=== PATIENT | female | born 1975 | race Caucasian/White ===

== ENCOUNTER 2025-09-23 17:24 | Inpatient (IN) | payer OTHER, SELFPAY ==
[2025-09-23 17:38] VITALS: PULSE 86; BMI 38.4
--- NOTE | 2025-09-23 18:02 | MHC.EDTECH ---
Patient refusing lab work at this time. RN aware.
[2025-09-23 18:04] VITALS: BP 147/87; PULSE 105; RESP 18; TEMP 36.1; O2SAT 100
[2025-09-23 18:12] LABS: Appearance Urine Cloudy; Glucose Urine UA Negative (Negative); PH 5.0 (5.0-9.0); Specific Gravity - Urine 1.015 (1.005-1.025); UMIC TRIGGER UA YES
[2025-09-23 18:22] LABS: Cannabinoid Screen Urine Not Detected (Not Detect)
--- NOTE | 2025-09-23 18:43 | ED.PSYCH ---
HPI - Psych General Chief Complaint: Psychiatric Symptoms Stated Complaint: delusions Time Seen by Provider: 09/23/25 17:52 History of Present Illness ED Provider: Serene Hollingsworth NP HPI Narrative: 50-year-old female with psychiatric medical history presents to the ED via EMS for evaluation of manic behavior and delusional statements. The patient reportedly believes that people are trying to high risk for heart for her ex- and other organs, she has been calling [email or web address], as well as [employer], and the [employer]. She denies any active suicidal ideation or homicidal ideation. Denies any medical complaints. No chest pain or pressure, shortness of breath, abdominal pain, fever or chills. Related Data Home Medications ?Medication ?Instructions ?Recorded ?Confirmed No Known Home Meds 09/23/25 09/23/25 Allergies Allergy/AdvReac Type Severity Reaction Status Date / Time No Known Allergies Allergy Verified 09/23/25 17:44 Review of Systems Review of Systems: ROS is otherwise negative unless mentioned in HPI. [facility] Social History Social History Advance Directives: No Advance Directives Information Provided: No Do you have a plan to hurt others: No Plan Physical Exam Exam: Exam: Nursing notes and vital signs reviewed. Constitutional: Well-appearing, NAD. Alert. Oriented X3. Eyes: EOMI. ENT: Pharynx normal. Neck: Normal inspection. Neck supple. CVS: Pulses normal. Respiratory: No respiratory distress. Abdomen: Nondistended. Skin: Skin warm and dry. Extremities: No lower extremity edema. Neuro: Oriented X 3. No motor deficit. Vital Signs: Vital Signs: Last Vital Signs Temp 98.7 F 09/25/25 06:43 Pulse 92 09/25/25 06:43 Resp 16 09/25/25 06:43 BP 140/73 H 09/25/25 06:43 Pulse Ox 98 09/25/25 06:43 O2 Del Method Room Air 09/25/25 06:43 BMI result Body Mass Index 38.4 Course Reevaluation(s) Reevaluation #1: Time: 05:14 Date: 09/24/25 Provider: William Gonzalez MD Patient in physician observation for psychiatric evaluation.? No acute events reported overnight. No current complaints. VS revealed an elevated blood pressure 178/84 stable, patient asymptomatic, will continue to monitor BP.? Patient is in bed search status. Will continue to monitor. 5:19 AM 09/24/2025 (Arabella Mitchell ): Notified by nursing staff that patient is refusing p.o. medication time due to her paranoia. At this time given patient's delusions. I do not think patient has capacity to make decisions in regards to her care. In order to safely treat patient's urinary tract infection we will plan to order some IM ceftriaxone. We will also plan to give patient IM Haldol and IM Valium to safely administer the medication. Time: 12:00 Date: 09/24/25 Provider: William Gonzalez MD Patient in physician observation for psychiatric evaluation.? The patient was evaluated by the care team and I obtained the following information. The patient was placed on a section 12 by police since the patient had call the FBI sitting that her neighbors were [place] and were planning on vomiting at [facility]. The patient will be kept on a section 12 in his now on inpatient bed search.. Time: 06:20 Date: 09/25/25 Provider: Lizy Araiza DO Patient in physician observation for psychiatric evaluation.? No acute events reported overnight. No current complaints. VS stable.? Patient is in bed search status. Will continue to monitor. Time: 13:16 Date: 09/25/25 Provider: Lizy Araiza DO Physician observation ended at 116pm. Patient to be admitted as inpatient to psychiatry.. Medications Administered Generic Name Dose Route Start Last Admin Trade Name Freq PRN Reason Stop Dose Admin Nitrofurantoin Macrocrystals 100 mg 09/23/25 21:00 09/25/25 09:30 Nitrofurantoin Monohyd/M-Cryst 100 Mg Capsule PO 09/28/25 18:50 100 mg BID AARON Administration Medical Decision Making Medical Decision Making MDM Narrative: 6:45 PM 09/23/2025 (Serene Hollingsworth NP): Upon my initial assessment of this patient, she is alert, oriented, but also makes delusional statements that do not make sense. Reports people are trying to harvest your organs, she believes they are trying to do this for her ex-. She has also been calling [email or web address], [employer], and the [employer]. She has been trespass for several facilities for aggressive behavior as well as outbursts. She is tearful upon my exam. Denies any SI, HI directly. Makes passive statements. Initially refusing lab work, now is agreeable. I spoke with the care team, who is coming to evaluate the patient now. Likely will need placement. Of note, the urine does have moderate leukocytes, 11-20 white blood cells, and 2+ bacteria. We will initiate Macrobid for 5 days b.i.d. 8:28 PM: patient was seen by care team. was placed on section 12, will need inpatient placement for psychosis and delusions. Differential Diagnosis Differential Diagnoses: The differential diagnosis associated with the presentation includes Manic episode, bipolar, psychosis, electrolyte abnormalities, underlying infection Admission/Observation Consideration of admission/observation: Escalation of care including admission/observation considered Consult Healthcare Provider Management of the patient was discussed with: Behavioral Health Provider Lab Data [facility] Lab Attestation statement: I reviewed the patient's lab results. 09/23/25 18:53 09/23/25 18:53 Labs: Lab Results 09/23/25 09/23/25 Range/Units 18:03 18:53 WBC 10.4 (4.8-10.8) X10*3/uL RBC 4.76 (4.20-5.50) X10*6/uL Hgb 13.7 (12.0-16.0) g/dl Hct 40.1 (37.0-47.0) % MCV 84.2 (80.0-98.0) fL MCH 28.8 (27.0-33.0) pg MCHC 34.2 (31.0-35.0) g/dl RDW 13.3 (11.0-16.0) % Plt Count 113 L (160-400) X10*3/uL MPV 11.7 (9.4-12.3) fL Immature Gran % (Auto) 0.4 (0.0-0.4) % Neut % (Auto) 79.0 H (45-73) % Lymph % (Auto) 14.0 L (20-40) % Navajo % (Auto) 4.3 (2-11) % Eos % (Auto) 1.7 (0-4) % Baso % (Auto) 0.6 (0-2) % Lymph # (Auto) 1.5 (1.2-4.9) X10*3/uL Navajo # (Auto) 0.5 (0.1-1.2) X10*3/uL Eos # (Auto) 0.2 (0.0-0.4) X10*3/uL Baso # (Auto) 0.1 (0.0-0.2) X10*3/uL Abs Immat Gran (auto) 0.04 H (0.00-0.03) X10*3/uL Absolute Neuts (auto) 8.2 (2.0-8.3) x10*3/uL Absolute Nucleated RBC 0.000 (0.0-0.012) X10*3/uL Nucleated RBC % (auto) 0.0 (0.0-0.2) /100WBC Smear Tech's Comments VERIFIED Sodium 140 (135-145) mmol/L Potassium 3.8 (3.3-5.1) mmol/L Chloride 109 H (96-108) mmol/L Carbon Dioxide 18 L (22-29) mmol/L Anion Gap 17 (12-20) BUN 15 (9-16) mg/dL Creatinine 0.77 (0.5-1.4) mg/dL Estim Creat Clear Calc 91.9 Estimated GFR > 60 Random Glucose 133 H (60-115) mg/dL Calcium 9.4 (8.4-10.2) mg/dL Total Bilirubin 0.1 (0.0-1.0) mg/dL AST 25 (5-31) U/L ALT 20 (0-31) U/L Alkaline Phosphatase 85 (39-117) U/L Total Protein 7.7 (6.5-8.0) g/dL Albumin 4.3 (3.5-5.0) g/dL Urine Color Yellow Urine Appearance Cloudy Urine pH 5.0 (5.0-9.0) Ur Specific Freeman 1.015 (1.005-1.025) Urine Protein Negative (Neg-Trace) mg/dL Urine Glucose (UA) Negative (Negative) mg/dL Urine Ketones Negative (Negative) mg/dL Urine Blood Negative (Negative) Urine Nitrite Negative (Negative) Ur Leukocyte Esterase Moderate (2+) H (Negative) Urine RBC 0-2 (0-2) /HPF Urine WBC 11-20 H (0-5) /HPF Ur Squamous Epith Cells 3-5 (0-2) /HPF Urine Bacteria 2+ (None Seen) Hyaline Casts 0-2 (0-2) /LPF Salicylates < 5.0 L (15-30) mg/dL Urine Opiates Screen Not Detected (Not Detect) Ur Buprenorphine Scrn Not Detected (Not Detect) ng/mL Ur Oxycodone Screen Not Detected (Not Detect) ng/mL Urine Methadone Screen Not Detected (Not Detect) ng/mL Urine Fentanyl Screen Not Detected (Not Detect) Acetaminophen < 3 (<30) mcg/mL Ur Barbiturates Screen Not Detected (Not Detect) Ur Phencyclidine Scrn Not Detected (Not Detect) Ur Amphetamines Screen Not Detected (Not Detect) U Benzodiazepines Scrn Not Detected (Not Detect) Urine Cocaine Screen Not Detected (Not Detect) U Marijuana (THC) Screen Not Detected (Not Detect) Ethyl Alcohol < 10 mg/dL Independent Historian Clinical information obtained from an independent historian. History obtained from or confirmed by: EMS External Record Review External record reviewed: Outpatient record Discharge Plan Discharge Clinical Impression: Delusions Patient Disposition: Admitted As Inpatient Interventions: Lewis-Suicide Risk Severity Scale Last Done: 09/25/25 07:40 Print Language: Romanian
--- OUTSIDE RECORDS SUMMARY | 2025-09-23 19:02 | XMS_ITS | Clinical Summary ---
Author Organization [facility] Address [address] [facility] [address] [place] [address] Phone Care Team Providers Care Finance Manager Name Role Phone Cathie Springer CNM Unavailable Lan Colmenares MD Unavailable [phone] Uzma Ward LICENSING REPRESENTATIVE Unavailable [phone] Lan Colmenares MD Primary Care Provider [phone] Allergies No known active allergies Medications copper (PARAGARD T 380A) 380 square mm intrauterine device Active risperiDONE (RISPERDAL) 1 MG tablet Take 1 mg by mouth nightly at bedtime. Active Immunizations No known immunizations Family History Medical History Relation Comments Diabetes Brother Diabetes type I Brother Heart attack Father non smoker Diabetes mellitus Maternal Grandfather CV disease Mother Hyperlipidemia Mother Hypertension Mother Osteoporosis Mother Relation Status Comments Brother Father (Age 60's) Maternal Grandfather Mother Alive Son Alive Social History Tobacco Use Types Packs/Day Years Used Date Smoking Tobacco: Former Cigarettes 2 2002 Smokeless Tobacco: Never Tobacco Cessation:Counseling Given: Not Answered Alcohol Use Standard Drinks/Week Comments Yes 0 (1 standard drink = 0.6 oz pur e alcohol) 1 drink a month Education Answer Date Recorded Are you interested in more education? Not on aminta e 01/30/2023 Are you concerned about learning? Not on file 01/30/2023 No 01/30/2023 No 01/30/2023 Digital Access Answer Date Recorded No 03/02/2023 No 03/02/2023 Reliable internet access at home? Not on file 03/02/2023 Device with a working camera? 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 Not on file Not on file Not on file Last Filed Vital Signs Vital Sign Reading Time Taken Comments Blood Pressure 122/70 12/02/2024 4:28 PM EST Pulse 78 09/29/2019 10:52 AM EST Temperature 37.3 C (99.1 F) 03/01/2019 10:21 AM EDT Respiratory Rate - - Oxygen Saturation 98% 09/29/2019 10:52 AM EST Inhaled Oxygen Concentration - - Weight 77.1 kg (170 lb) 12/02/2024 4:28 PM EST Height 156.2 cm (5' 1.5 ) 12/02/2024 4:28 PM EST Body Mass Index 31.6 12/02/2024 4:28 PM EST Plan of Treatment Upcoming Encounters Date Type Department Care Team (Late st Contact Info) Description 11/01/2026 11:00 AM EST Office Visit [facility] [address] [place] [address] Damian Harkins, CHARLES [address] [place] [address] [place] [address] [email or web address] Health Maintenance Due Date Last Done Comments Adult Td,Tdap Booster 1973 SMOKING Hx and SMOKELESS TOBACCO SCREENING 1986 HEPATITIS C SCREENING 1991 HIV ONE-TIME SCREENING (18-65 YEARS) 1991 COLOGUARD 2018 COLONOSCOPY 2018 COLORECTAL CANCER SCREENING 2018 FIT TEST 2018 FOBT 2018 SIGMOIDOSCOPY 2018 VIRTUAL COLONOSCOPY 2018 MAMMOGRAM 01/27/2020 01/26/2019, 11/13/2017 DEPRESSION SCREENING 09/29/2020 09/29/2019 SCREENING FOR DIABETES 08/27/2022 08/27/2019 PNEUMOCOCCAL VACCINES (50+ years) (1 of 1 - PCV) 2023 ZOSTER VACCINES (1 of 2) 2023 LIPID PANEL 08/27/2024 08/27/2019 PAP SMEAR 10/19/2024 10/19/2019, 10/05, 08/23/2015, Additional history exists INFLUENZA VACCINE (#1) 2025 COVID-19 VACCINE (2 - season) 2025 12/20/2020 RSV VACCINE (1 - 1-dose 75+ series) 2048 HEPATITIS A VACCINES Aged Out No long er eligible based on patient's age to complete this topic HIB VACCINES Aged Out No longer eligi ble based on patient's age to complete this topic MENINGOCOCCAL VACCINES (ACWY) Aged Out No longer eligible based on patient's age to complete this topic MENINGOCOCCAL VACCINES (B) Aged Out N o longer eligible based on patient's age to complete this topic Medical Devices Not on file Procedures Procedure Name Priority Date/Time Associated Diagnosis Comments PAP TEST Routine 10/19/2019 12:00 AM EST LIPID PANEL Routine 08/27/2019 8:23 AM EST Routine general medical examination at a health care facility BI MAMMOGRAM SCREENING WITH TOMOSYNTHESIS WITH CAD (BILATERAL) Routine 01/26/2019 10:00 AM EDT Breast screening from Last 3 Months or Most Recently Relevant to Health Maintenance Results * Pap Smear (10/19/2019 12:00 AM EST) 10/19/2019 10/21/2019 8:3 0 AM EST Narrative SEE NARRATIVE - 11/02/2019 12:28 PM [place] [address] [facility] [place] Cytology Report Patient Name: GEOVANNI IVY : 1975 (Age: 44) Sex: F Institution: [facility] Location: [facility] Date of Collection: 10/19/2019 Date of Reported: 11/02/2019 12:28 Results to: Cathie Springer MSN FINAL DIAGNOSIS A. CERVICAL, LIQUID BASED SPECIMEN: SPECIMEN ADEQUACY: Satisfactory for evaluation. INTERPRETATION: NEGATIVE FOR INTRAEPITHELIAL LESION OR MALIGNANCY. ADDITIONAL INFORMATION: This specimen was prescreened using the [employer] System. Electronically Signed Out By: BARTOLO Richards(ASCP)PRAKASH Cervical cytology is a screening test primarily for squamous cancers and precursors and has associated false-negative and false-positive results. New technologies such as liquid-based preparations may decrease but will not eliminate all false-negative results. Regular sampling and follow-up of unexplained clinical signs and symptoms are recommended to minimize false negative results. PROCEDURES/ADDENDA HPV Testing (Requested) Ordered Date: 10/21/2019 A. CERVICAL, LIQUID BASED SPECIMEN: Human Papilloma Virus Test Negative for high-risk human papillomavirus types 16, 18, 45 and the Other high risk probe set (Includes 31, 33, 35, 39, 51, 52, 56, 58, 59, 66, 68) by [employer] Onclarity HR-HPV analysis. Clinical correlation is advised. This HPV test was performed at [facility], [address] [place] [address]. This test has been FDA approved for [employer] cervical cytology specimens. The accuracy and precision of this test for all other specimen sources has been verified in the Cytopathology Laboratory of the [facility] and has not been cleared or approved by the U.S. Food and Drug Administration. Clinical correlation is advised. CLINICAL HISTORY Date of Last Menstrual Period: 09-17-2019 Other Clinical Conditions: Screening Pap SPECIMEN SOURCE A: CERVICAL, LIQUID BASED SPECIMEN Cathie VELASQUEZ CYTOLOGY ORDERABLES nal Result SEE NARRATIVE * Lipid panel (08/27/2019 8:23 AM EST) HDL 49 mg/dL [facility] Comment: Interpretation <40 mg/dL: Low HDL cholesterol (major risk factor for CHD) Greater than or equal to 60 mg/dL: High HDL cholesterol ( negative risk factor for CHD) HDL - cholesterol is affected by a number of factors, e.g. smoking, excerise, hormones, sex and age. CHOLESTEROL 189 0 - 240 mg/dL [facility] TRIGLYCERIDES 120 30 - 160 mg/dL [facility] LDL 116 50 - 129 mg/dL [facility] Comment: LDL levels in terms of risk for coronary heart disease: <100 mg/dL: Optimal 100-129 mg/dL: Near or above optimal 130-159 mg/dL: Borderline high 160-189 mg/dL: High >190 mg/dL: Very High CARDIAC RISK RATIO 3.9 3.3 - 4.4 C [facility] Blood 08/27/2019 8:23 AM EST 08/27/2019 8:30 AM EST us Lan Colmenares MD LAB BLOOD BKR ORDERABLES F inal Result [address] [address] * BI MAMMOGRAM SCREENING WITH TOMOSYNTHESIS WITH CAD (BILATERAL) (01/26/2019 10:00 AM EDT) Anatomical Region Laterality Modality Breast Left, Breast Right, Breast Bilateral Bila teral Mammography 01/27/2019 5:15 PM EDT Impressions 01/27/2019 5:20 PM EDT No mammographic change indicative of malignancy. Routine screening is recommended. BI-RADS CATEGORY: 2 - Benign finding. DENSITY: There are scattered fibroglandular densities. POS - CDHMAM2 Narrative 01/27/2019 5:20 PM EDT FINDINGS: Bilateral full-field digital screening mammography is obtained and read in conjunction with computer-aided detection. 3-D tomosynthesis as well as 2-D C view imaging is also performed. Comparison includes the most recent exam from 11/13/2017 and as far back as 05/30/2013. Breasts are composed of scattered fibroglandular tissue. Stable bilateral nodularity. Bilateral calcifications show no worrisome interval change. No new suspicious mass, suspicious microcalcifications, architectural distortion, focal skin thickening, or new asymmetry is detected. Procedure Note Vonnie Wei MD - 01/27/2019 FINDINGS: Bilateral full-field digital screening mammography is obtained and read inconjunction with computer-aided detection. 3-D tomosynthesis as well as2-D C view imaging is also performed. Comparison includes the most recentexam from 11/13/2017 and as far back as 05/30/2013. Breasts are composed of scattered fibroglandular tissue. Stable bilateralnodularity. Bilateral calcifications show no worrisome interval change.No new suspicious mass, suspicious microcalcifications, architecturaldistortion, focal skin thickening, or new asymmetry is detected. IMPRESSION: No mammographic change indicative of malignancy. Routine screening isrecommended. BI-RADS CATEGORY: 2 - Benign finding. DENSITY: There are scattered fibroglandular densities. POS - CDHMAM2 Beverly Mora MD IMG MG EXAMS Final Resu lt from Last 3 Months or Most Recently Relevant to Health Maintenance Insurance [facility] Address: [address] [address] [facility] HMO [facility] Address: [address] [address] [employer] Care Teams Finance Manager Relationship Specialty Start Date End Date Lan Colmenares MD [address] [place] [address] [email or web address] PCP - General 09/03/17 Cathie Springer CNM [address] [place] [address], [address] [place] [address] [email or web address] Historical LMR Provider 07/20/17 Lan Colmenares MD [address] [place] [address] [email or web address] Historical LMR Provider 07/20/17 Uzma Ward NP [address] [place] [address] Historical LMR Provider 07/20/17 Additional Source Comments The information contained in this document represents components of the legal health record. It is not the complete legal health record.[facility]
--- OUTSIDE RECORDS SUMMARY | 2025-09-23 19:02 | XMS_ITS | Encounter Summary ---
Author Organization [facility] Address [address] [facility] [address] [place] [address] Phone Care Team Providers Care Bible Worker Name Role Phone Milena Henderson MD Unavailable Cathie Springer CNM Unavailable Shanon Patricia MACHINE SHOP REPAIR TECHNICIAN Unavailable [phone] Lan Colmenares MD Unavailable [phone] Uzma Ward MACHINE SHOP REPAIR TECHNICIAN Unavailable [phone] Unknown, Unknown Primary Care Provider Lan Hurtado MD Primary Care Provider [phone] Encounter Details Date Type Department Care Team (Late st Contact Info) Description 07/25/[address] [facility] [address] [place] [address] Beverly Mora MD [address] [facility] [address] [place] [address] [email or web address] Screening breast examination Social History Tobacco Use Types Packs/Day Years Used Date Smoking Tobacco: Never Assessed Comments Unknown Sex and Gender Information Value Date Recorded Sex Assigned at Female 08/14/2025 10:29 AM EST Legal Sex Female 9:31 PM EDT Gender Identity Female 08/14/2025 10:29 AM EST Sexual Orientation Straight 08/14/2025 10 :29 AM EST documented as of this encounter Plan of Treatment Upcoming Encounters Date Type Department Care Team (Late st Contact Info) Description 11/01/2026 11:00 AM EST Office Visit [facility] [address] [place] [address] Damian Harkins, CHARLES [address] [facility] [place] [address] [email or web address] documented as of this encounter Results * BI MAMMOGRAM SCREENING WITH TOMOSYNTHESIS WITH CAD (BILATERAL) (11/13/2017 8:05 AM EST) Anatomical Region Laterality Modality Breast Left, Breast Right, Breast Bilateral Bila teral Mammography 11/13/2017 8:49 AM EST Impressions 11/13/2017 8:52 AM EST No mammographic change indicative of malignancy. Annual screening is recommended. BI-RADS CATEGORY: 1 - Negative. DENSITY: The breast tissue is almost entirely fat. POS -CDHMAMA Narrative 11/13/2017 8:52 AM EST Bilateral full-field digital screening mammography is obtained and read in conjunction with computer-aided detection. Tomosynthesis as well as 2-D C view imaging of both breasts in two planes also obtained. Comparison made to multiple prior, most recent 10/31/2016, and most remote 05/10/2013. No dominant mass, architectural distortion, worrisome asymmetry, or suspicious calcification is identified. No skin or nipple finding of concern is appreciated. Few dermal calcifications noted. Procedure Note Duglas Le MD - 11/13/2017 Bilateral full-field digital screening mammography is obtained and read inconjunction with computer-aided detection. Tomosynthesis as well as 2-D Cview imaging of both breasts in two planes also obtained. Comparison madeto multiple prior, most recent 10/31/2016, and most remote 05/10/2013. No dominant mass, architectural distortion, worrisome asymmetry, orsuspicious calcification is identified. No skin or nipple finding ofconcern is appreciated. Few dermal calcifications noted. IMPRESSION: No mammographic change indicative of malignancy. Annual screening isrecommended. BI-RADS CATEGORY: 1 - Negative. DENSITY: The breast tissue is almost entirely fat. POS -CDHMAMA us Beverly Mora MD IMG MG EXAMS Final Resu lt documented in this encounter Visit Diagnoses Diagnosis Screening breast examination Other screening breast examination documented in this encounter Care Teams Bible Worker Relationship Specialty Start Date End Date Unknown, Unknown, MD [address] [place] [address] PCP - General 07/25/17 09/02/17 Lan Colmenares MD [address] [place] [address] [email or web address] PCP - General 09/03/17 Milena Henderson MD [address] [place] [address] Historical LMR Provider 07/20/17 2 Cathie Springer CNM [address] [place] [address] [email or web address] Historical LMR Provider 07/20/17 Shanon Patricia NP [address] [place] [address] Historical LMR Provider 07/20/17 2 Lan Colmenares MD [address] [place] [address] Historical LMR Provider 07/20/17 Uzma Ward NP [address] [place] [address] Historical LMR Provider 07/20/17 documented as of this encounter Additional Source Comments The information contained in this document represents components of the legal health record. It is not the complete legal health record.[facility]
--- OUTSIDE RECORDS SUMMARY | 2025-09-23 19:02 | XMS_ITS | Encounter Summary ---
Author Organization [facility] Address [address] [facility] [address] [place] [id number] Phone Care Team Providers Care Portable Grinding Machine Operator Name Role Phone Milena Henderson MD Unavailable Cathie Springer CNM Unavailable [phone] Shanon Patricia SUPERVISOR CELL MAINTENANCE Unavailable [phone] Lan Colmenares MD Unavailable Uzma Ward SUPERVISOR CELL MAINTENANCE Unavailable [phone] Lan Colmenares MD Primary Care Provider [phone] Encounter Details Date Type Department Care Team (Late st Contact Info) Description 12/22/2018 Ancillary Orders [facility] [address] [place] [address] Beverly Mora MD [address] [address] [email or web address] Breast screening Social History Tobacco Use Types Packs/Day Years Used Date Smoking Tobacco: Never Assessed Comments No Sex and Gender Information Value [...] Description 11/01/2026 11:00 AM EST Office Visit [facility] [address] [place] [address] Torin Damian Felicia, TRIM MECHANIC [address] [place] [address] [email or web address] documented as of this encounter Results * [...] are scattered fibroglandular densities. POS - [id number] us Beverly Mora MD IMG MG EXAMS Final Resu lt documented in this encounter Visit Diagnoses Diagnosis Breast screening Breast screening, unspecified Breast screening Breast screening, unspecified documented in this encounter Care Teams Portable Grinding Machine Operator Relationship Specialty Start Date End Date Lan Colmenares MD [address] [place] [id number] [email or web address] PCP - General 09/03/17 Milena Henderson MD [address] [place] [address] Historical LMR Provider 07/20/17 2 Cathie Springer CNM [address] [place] [phone] [email or web address] Historical LMR Provider 07/20/17 Shanon Patricia NP [address] [place] [phone] Historical LMR Provider 07/20/17 2 Lan Colmenares MD [address] [place] [phone] [email or web address] Historical LMR Provider 07/20/17 Uzma Ward NP [address] [place] [id number] Historical LMR Provider 07/20/17 documented as of this encounter Additional Source Comments The information contained in this document represents components of the legal health record. It is not the complete legal health record.[facility]
[2025-09-23 19:14] LABS: Hematocrit 40.1 % (37.0-47.0); Hemoglobin 13.7 g/dl (12.0-16.0); Imm Gran Abs Auto 0.04 X10*3/uL (0.00-0.03); Imm Gran Pct Auto 0.4 % (0.0-0.4); Lymphocytes Absolute Auto 1.5 X10*3/uL (1.2-4.9); MANUAL DIFF FLAG SCAN; Mean Corpuscular HGB Conc 34.2 g/dl (31.0-35.0); Mean Corpuscular Hemoglobin 28.8 pg (27.0-33.0); Mean Corpuscular Volume 84.2 fL (80.0-98.0); NRBC Abs Auto 0.000 X10*3/uL (0.0-0.012); NRBC Pct Auto 0.0 /100WBC (0.0-0.2); PLT CLUMP 1; Red Blood Count 4.76 X10*6/uL (4.20-5.50); SCAN SMEAR FLAG 1
[2025-09-23 19:30] LABS: Acetaminophen LAB < 3 mcg/mL (<30); Salicylate < 5.0 mg/dL (15-30)
[2025-09-23 19:33] LABS: Alanine Aminotransferase 20 U/L (0-31); Albumin Level 4.3 g/dL (3.5-5.0); Alkaline Phosphatase 85 U/L (39-117); Anion Gap 17 (12-20); Aspartate Amino Transferase 25 U/L (5-31); Blood Urea Nitrogen 15 mg/dL (9-16); Calcium 9.4 mg/dL (8.4-10.2); Carbon Dioxide 18 mmol/L (22-29); Chloride 109 mmol/L (96-108); Creatinine Clr Calc Pharmacy 91.9; Estimated Glomerular Filt Rate > 60; Potassium 3.8 mmol/L (3.3-5.1); Sodium 140 mmol/L (135-145); Total Protein 7.7 g/dL (6.5-8.0)
--- NOTE | 2025-09-23 20:00 | MHC.CARE ---
Pt will be adult IPLOC. Section 12a in chart for safety.
[2025-09-23 20:02] LABS: Platelet Count 113 X10*3/uL (160-400); White Blood Count 10.4 X10*3/uL (4.8-10.8)
[2025-09-24 04:08] VITALS: BP 178/84; PULSE 95; RESP 16; TEMP 36.5; O2SAT 98
--- NOTE | 2025-09-24 04:15 | PC.NURSE ---
Assumed care at 1845. Patient is delusional and paranoid towards peers/staff. Made statement such as A section 12 does not apply to me. 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 At one point, patient pulled t/w aside and stated I can't date that man over there. He's not my type. I feel bad to turn him down referring to [facility] Pod. Refused HS scheduled ABX for +UTI and states No. I don't really need it and I don't trust you. Continues to be invasive of peers privacy/space asking staff Why is that person here? Remained awake sitting in chair for majority of shift. High BP reading this AM, MD Mitchell made aware. Will continue to monitor for safety.
--- NOTE | 2025-09-24 05:46 | PC.NURSE ---
Patient accepted HS scheduled ABX this morning after discussing potential IM ABX. MD Mitchell aware. Per patient discussion, she is now willing to accept PO medications.
--- NOTE | 2025-09-24 11:06 | PHA.MEDREC ---
Pharmacy Consult ? Medication Reconciliation Pharmacy has completed the medication reconciliation. Confirmed med rec of attending nurse.
--- NOTE | 2025-09-24 11:44 | MHC.CARE ---
CARE team saw pt for reassessment. No change in disposition, plan to continue boarding in ED awaiting inpatient psych placement. Pt is advocating for discharge but expressed understanding that she will need to be seen by hospital psychiatry in order for them to determine the most appropriate plan of care, given that she is not agreeable to taking medications.
[2025-09-24 14:28] VITALS: BP 161/78; PULSE 88; RESP 16; TEMP 36.8; O2SAT 100
--- NOTE | 2025-09-24 21:28 | PC.NURSE ---
Assumed care at 1845. Patient resting comfortably in bed. Describes her mood as Tired. Accepted HS scheduled ABX. Declined the need for additional PRN's. Denies SI/HI/AVH. Remains in behavioral control. Continue plan of care.
[2025-09-24 21:33] VITALS: BP 136/70; PULSE 89; RESP 16; TEMP 36.7; O2SAT 99
[2025-09-25 06:43] VITALS: BP 140/73; PULSE 92; RESP 16; TEMP 37.1; O2SAT 98
--- NOTE | 2025-09-25 07:40 | PC.NURSE ---
Assumed care of patient at 0645, patient appears to be in no apparent distress this am, pt does continue to appear to have delusions. Patient is however, calm and cooperative. Continue plan of care for IPLOC
--- NOTE | 2025-09-25 08:27 | ECG_ITS ---
Test Reason : qrs Blood Pressure : */* mmHG Vent. Rate : 96 BPM Atrial Rate : 96 BPM P-R Int : 152 ms QRS Dur : 76 ms QT Int : 340 ms P-R-T Axes : 51 16 23 degrees QTcB Int : 429 ms Normal sinus rhythm Possible Left atrial enlargement Borderline ECG No previous ECGs available Referred By: Serene Hollingsworth Electronically Signed By: MARKUS BONNER MD
--- NOTE | 2025-09-25 13:42 | PHA.MEDREC ---
Pharmacy Consult ? Medication Reconciliation Pharmacy has reviewed the medication reconciliation completed by nursing.
[2025-09-25 16:00] VITALS: BMI 36.0
--- NOTE | 2025-09-25 16:07 | PC.NURSE ---
Pt refused flu shot
[2025-09-25 17:28] VITALS: BP 138/84; PULSE 88; RESP 16; TEMP 36.3; O2SAT 98
--- NOTE | 2025-09-25 17:56 | PC.NURSE ---
Geovanni was admitted to [facility] at 1515 from [facility] Pod on CV for treatment of schizoaffective disorder. She signed a 3 day notice. Prior to admission pt was reportedly acting erratically in a local restaurant and got a no trespass order. 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 Per crisis report pt indicates that people are following her to harvest her organs for her ex . She is alert and oriented to day date time and place. Mood is fine per pt. She does appear hypomanic in that she is hyperverbal and responses are circumstantial. Affect is anxious. She denies hallucinations. At times she appears internally preoccupied, like she is attending to internal stimuli. She denies ideation, plan or intent to harm self or others. Appetite is good. Sleep is poor with difficulty falling and staying asleep. She denies substance issues of any kind. Tox Screen is negative She denies medical issues?and physical complaint? Safety Checks are q 15 minutes
[2025-09-25 20:00] VITALS: BP 150/90; PULSE 100; RESP 16; TEMP 36.5; O2SAT 97
[2025-09-26 08:38] LABS: Alanine Aminotransferase 25 U/L (0-31); Albumin Level 4.4 g/dL (3.5-5.0); Alkaline Phosphatase 86 U/L (39-117); Anion Gap 12 (12-20); Aspartate Amino Transferase 23 U/L (5-31); Blood Urea Nitrogen 16 mg/dL (9-16); Calcium 9.5 mg/dL (8.4-10.2); Carbon Dioxide 25 mmol/L (22-29); Chloride 106 mmol/L (96-108); Cholesterol 207 mg/dL (<200); Creatinine Clr Calc Pharmacy 86.5; Estimated Glomerular Filt Rate > 60; HDL Cholesterol 41 mg/dL (>40); Potassium 3.8 mmol/L (3.3-5.1); Sodium 139 mmol/L (135-145); Total Protein 7.6 g/dL (6.5-8.0); Triglycerides 224 mg/dL (<150)
[2025-09-26 08:53] VITALS: BP 140/72; PULSE 93; RESP 16; TEMP 36.8; O2SAT 97
--- NOTE | 2025-09-26 08:57 | HO.PSYADMNOT ---
HPI Date of Service: 09/26/25 Chief Complaint: MORRO Sources of Information: patient interviewed, chart reviewed and crisis/core team assessment reviewed HPI Subjective Notes: Hughes Warning and Conditional Voluntary Narrative: Patient is a 50-year-old female with history schizoaffective disorder who presented to ER via ambulance due to manic behaviors and delusional thoughts. Per crisis report, patient reportedly believes people are after her and are attempting to harvest her heart . 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 Patient believes people are looking for her and are going to harvest her organs for her ex- . Patient has been contacting police, homeland security and FBI. Speech is tangential. She reports being a part of [employer] and needs to remain private. Patient stated, I only sleep around 12:28am. I wake up at this time and have to be aware. I'm not allowed out of my house after 10pm . Patient presents delusional, paranoid and thought blocking. She reports sleep and appetite are okay. She presents as internally preoccupied. Patient denies SI/HI/VH/AH. History of 2 inpatient psychiatric hospitalizations. Patient reports she is no longer taking psychiatric medications. She denies history of SA/SIB. denies any substance use. Utox negative. During admission assessment, patient presents alert and oriented x3. Calm and cooperative. Presents with rapid and pressured speech. Rambling. Tangential. Flight of ideas. Grandiose. Patient reports feeling fine ; patient stated, All my blood work is fine. I don't have cancer. 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 She reports her sleep and appetite are good. She reports not having outpatient psychiatric providers. Patient reports history of 1 inpatient psychiatric hospitalization in 2014. Denies history of SA/SIB. Denies SI/HI/VH/AH. She denies any substance use. When discussing medications patient stated, I used to take Risperdal and Abilify, but I stopped taking those because they gave me side effects. I signed a waiver that I don't have to take medicine. I'm not allowed through [employer] . Patient reports she was made aware recently through her Democratic e-mail that her and her have similar names . Patient stated, Hopefully my ex- doesn't need a heart transplant. I'm not an organ donor . Discussed starting on Depakote and Vraylar; risks/benefits reviewed. Patient agreed to trial. Past Psychiatric History: She reports not having outpatient psychiatric providers. Patient reports history of 1 inpatient psychiatric hospitalization in 2014. Denies history of SA/SIB. She reports not having outpatient psychiatric providers. med hx: edson lara Medical Evaluation Reviewed: Yes PMFSH Family History: denies Social History: Lives alone. . 2 adult kids. Substance History: denies Trauma History: denies Diagnostics Vital Signs (24Hr): Vital Signs - 24 hr 09/25/25 17:28 09/25/25 20:00 09/26/25 08:53 Temperature 97.4 F 97.7 F 98.2 F Pulse Rate 88 100 93 Respiratory Rate 16 16 16 Blood Pressure 138/84 150/90 H 140/72 H Pulse Oximetry 98 97 97 Oxygen Delivery Method Room Air Room Air Room Air BMI result Body Mass Index 36.0 Labs 09/23/25 18:53 09/26/25 08:08 Labs: Laboratory Results - last 48 hr 09/26/25 08:08 Sodium 139 Potassium 3.8 Chloride 106 Carbon Dioxide 25 Anion Gap 12 BUN 16 Creatinine 0.79 Estim Creat Clear Calc 86.5 Estimated GFR > 60 Random Glucose 116 H Estimat Average Glucose 114 Hemoglobin A1c % 5.6 Calcium 9.5 Total Bilirubin 0.3 AST 23 ALT 25 Alkaline Phosphatase 86 Total Protein 7.6 Albumin 4.4 Triglycerides 224 H Cholesterol 207 H LDL Cholesterol, Calc 122 H HDL Cholesterol 41 Meds/Allergies Meds Home Medications ?Medication ?Instructions ?Recorded ?Confirmed ?Type No Known Home Meds 09/23/25 09/23/25 History Allergies Allergies Allergy/AdvReac Type Severity Reaction Status Date / Time No Known Allergies Allergy Verified 09/23/25 17:44 Mental Status Exam Mental Status Exam Patient Appearance: Appropriate Patient Orientation: Person, Place and Situation Level of Consciousness: Awake and Alert Patient Behavior: Appropriate, Cooperative and Good Eye Contact Mood Description: Euphoric Affect Description: Euphoric Ability to Follow Directions: Good Speech Pattern: Clear, Rambling, Rapid and Pressured Hallucinations: None Delusions: Paranoid Ideation and Grandiose Thought Process: Racing Thought Content: positive for Flight of Ideas and positive for Tangential Assessment & Plan Assessment & Plan (1) Schizoaffective disorder: Status: Acute Code(s): F25.9 - Schizoaffective disorder, unspecified Plan Patient is a 50-year-old female with history schizoaffective disorder who presented to ER via ambulance due to manic behaviors and delusional thoughts. Plan: CV 15 minute safety checks Obtain collateral Start: Depakote ER 1000mg PO bedtime Vraylar 1.5mg PO daily Referral to outpatient psychiatric provider Encourage groups Discharge planning Patient educated on: diagnosis and medication risk/benefits Reason for continued inpatient stay Substantial Risk for: med/psych decompensation Statement Statement: I have reviewed the history and physical and performed a pertinent examination on my patient. No changes have occurred unless specified. If the History and Physical was not performed prior to admission, the Hospitalist's service will be consulted for completing the admission physical. Time Spent With Patient Time: Total time managing care of this patient today _60___ minutes.
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
[2025-09-26 21:13] VITALS: BP 140/61; PULSE 98; RESP 16; TEMP 36.7; O2SAT 94
[2025-09-27 04:44] VITALS: BP 139/73; PULSE 88
[2025-09-27 08:00] VITALS: BP 139/73; PULSE 88; RESP 16; TEMP 36.7; O2SAT 98
--- NOTE | 2025-09-27 10:54 | P.PNPSI_ITS ---
Subjective Subjective Date of Service: 09/27/25 Reason For Visit: MORRO Subjective Notes: 3 Day Interim History: Active on unit. Present with rapid and pressured speech. Rambling. Flight of ideas. Fidgeting in chair. Patient stated, I'm angry at my friends for some of the things they did. They fired me from my job . Patient then began stating she does not trust her local police so she will have to talk to the [employer] about getting a no trespass order towards someone . When asked about her prescribed medications, patient stated, They're really good . pt denies any side effects at this time. Patient denies SI/HI/VH/AH. She does not appear to be responding to internal stimuli. Per nursing, patient slept 8 hours. Continue treatment plan. Medication Compliance: Yes Side effects from medications: No Mental Status Exam Mental Status Exam Patient Appearance: Appropriate Patient Orientation: Person, Place and Situation Level of Consciousness: Awake and Alert Patient Behavior: Appropriate, Cooperative and Good Eye Contact Mood Description: Euphoric Affect Description: Euphoric Ability to Follow Directions: Good Speech Pattern: Clear, Rambling, Rapid and Pressured Hallucinations: None Delusions: Paranoid Ideation and Grandiose Thought Process: Racing Thought Content: positive for Flight of Ideas and positive for Tangential Diagnostics Vital Signs (24Hr): Vital Signs - 24 hr 09/26/25 21:13 09/27/25 04:44 09/27/25 08:00 Temperature 98.1 F 98.1 F Pulse Rate 98 88 88 Respiratory Rate 16 16 Blood Pressure 140/61 H 139/73 139/73 Pulse Oximetry 94 98 Oxygen Delivery Method Room Air Room Air BMI result Body Mass Index 36.0 Labs 09/23/25 18:53 09/26/25 08:08 Labs: Laboratory Results - last 48 hr 09/26/25 08:08 Sodium 139 Potassium 3.8 Chloride 106 Carbon Dioxide 25 Anion Gap 12 BUN 16 Creatinine 0.79 Estim Creat Clear Calc 86.5 Estimated GFR > 60 Random Glucose 116 H Estimat Average Glucose 114 Hemoglobin A1c % 5.6 Calcium 9.5 Total Bilirubin 0.3 AST 23 ALT 25 Alkaline Phosphatase 86 Total Protein 7.6 Albumin 4.4 Triglycerides 224 H Cholesterol 207 H LDL Cholesterol, Calc 122 H HDL Cholesterol 41 Medications Medications Current Medications Acetaminophen (Acetaminophen 325 Mg Tablet) 650 mg PO Q6H PRN PRN Reason: Headache/Pain, Scale 1-10 Al Hydroxide/Mg Hydroxide (Magnesium Hydrox/Alum Hydrox 30 Ml Oral.Susp) 30 ml PO Q6H PRN PRN Reason: Heartburn/Nausea Cariprazine (Cariprazine Hcl 1.5 Mg Capsule) 1.5 mg PO DAILY [facility] Last Admin: 09/27/25 08:43 Dose: 1.5 mg Divalproex Sodium (Divalproex Sodium Er 500 Mg Tab.Er.24h) 1,000 mg PO DAILY [facility] Last Admin: 09/27/25 08:43 Dose: 1,000 mg Hydroxyzine HCl (Hydroxyzine Hcl 25 Mg Tablet) 25 mg PO Q6H PRN PRN Reason: mild anxiety Magnesium Hydroxide (Milk Of Magnesia 30 Ml Oral.Susp) 30 ml PO DAILY PRN PRN Reason: Constipation Nicotine Polacrilex (Nicotine Polacrilex 2 Mg Gum) 4 mg BUCCAL Q2H PRN PRN Reason: Nicotine Cravings Nitrofurantoin Macrocrystals (Nitrofurantoin Monohyd/M-Cryst 100 Mg Capsule) 100 mg PO BID [facility] Stop: 09/28/25 18:50 Last Admin: 09/27/25 08:43 Dose: 100 mg Olanzapine (Olanzapine 5 Mg Tablet) 5 mg PO Q4H PRN PRN Reason: agitation/psychosis Trazodone HCl (Trazodone Hcl 50 Mg Tablet) 50 mg PO BEDTIME MRX1 PRN PRN Reason: Insomnia Allergies Allergies Allergy/AdvReac Type Severity Reaction Status Date / Time No Known Allergies Allergy Verified 09/23/25 17:44 Assessment & Plan Assessment & Plan (1) Schizoaffective disorder: Status: Acute Code(s): F25.9 - Schizoaffective disorder, unspecified Plan Patient is a 50-year-old female with history schizoaffective disorder who presented to ER via ambulance due to manic behaviors and delusional thoughts. Plan: CV 15 minute safety checks Obtain collateral Start: Depakote ER 1000mg PO bedtime Vraylar 1.5mg PO daily Referral to outpatient psychiatric provider Encourage groups Discharge planning 09/27: Active on unit. Present with rapid and pressured speech. Rambling. Flight of ideas. Fidgeting in chair. Patient stated, I'm angry at my friends for some of the things they did. They fired me from my job . Patient then began stating she does not trust her local police so she will have to talk to the [employer] about getting a no trespass order towards someone . When asked about her prescribed medications, patient stated, They're really good . pt denies any side effects at this time. Patient denies SI/HI/VH/AH. She does not appear to be responding to internal stimuli. Per nursing, patient slept 8 hours. Continue treatment plan. Patient educated on: diagnosis and medication risk/benefits Reason for continued inpatient stay Substantial Risk for: med/psych decompensation Time Spent With Patient Time: Total time managing care of this patient today _20___ minutes.
[2025-09-27 20:20] VITALS: BP 131/66; PULSE 83; RESP 18; TEMP 36.6; O2SAT 95
[2025-09-28 09:14] VITALS: BP 124/62; PULSE 84; RESP 18; TEMP 36.3; O2SAT 95
--- NOTE | 2025-09-28 10:15 | HO.PSYCHPN ---
Subjective Subjective Date of Service: 09/28/25 Reason For Visit: MORRO Subjective Notes: Conditional Voluntary Interim History: Patient was seen and discussed in rounds today. Records and plans were reviewed. She continues to be somewhat disorganized, tangential. Affect is blunted. 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 No complaints or side effects. No SI. Sleeping 8 hours. No changes were made Review of Systems Review of Systems Yes all other systems are reviewed and are negative Mental Status Exam Mental Status Exam Patient Appearance: Appropriate Patient Orientation: Person, Place and Situation Level of Consciousness: Awake and Alert Patient Behavior: Appropriate, Cooperative and Good Eye Contact Mood Description: Calm Affect Description: Calm Ability to Follow Directions: Good Speech Pattern: Clear, Whisper and Coherent Hallucinations: None Delusions: Paranoid Ideation and Grandiose Thought Process: Racing Thought Content: positive for Flight of Ideas and positive for Tangential Diagnostics Vital Signs (24Hr): Vital Signs - 24 hr 09/27/25 20:20 09/28/25 09:14 Temperature 97.8 F 97.3 F Pulse Rate 83 84 Respiratory Rate 18 18 Blood Pressure 131/66 124/62 Pulse Oximetry 95 95 Oxygen Delivery Method Room Air Room Air BMI result Body Mass Index 36.0 Labs 09/23/25 18:53 09/26/25 08:08 Medications Medications Current Medications Acetaminophen (Acetaminophen 325 Mg Tablet) 650 mg PO Q6H PRN PRN Reason: Headache/Pain, Scale 1-10 Al Hydroxide/Mg Hydroxide (Magnesium Hydrox/Alum Hydrox 30 Ml Oral.Susp) 30 ml PO Q6H PRN PRN Reason: Heartburn/Nausea Cariprazine (Cariprazine Hcl 1.5 Mg Capsule) 1.5 mg PO DAILY [facility] Last Admin: 09/28/25 09:15 Dose: 1.5 mg Divalproex Sodium (Divalproex Sodium Er 500 Mg Tab.Er.24h) 1,000 mg PO DAILY [facility] Last Admin: 09/28/25 09:16 Dose: 1,000 mg Hydroxyzine HCl (Hydroxyzine Hcl 25 Mg Tablet) 25 mg PO Q6H PRN PRN Reason: mild anxiety Magnesium Hydroxide (Milk Of Magnesia 30 Ml Oral.Susp) 30 ml PO DAILY PRN PRN Reason: Constipation Nicotine Polacrilex (Nicotine Polacrilex 2 Mg Gum) 4 mg BUCCAL Q2H PRN PRN Reason: Nicotine Cravings Nitrofurantoin Macrocrystals (Nitrofurantoin Monohyd/M-Cryst 100 Mg Capsule) 100 mg PO BID AARON Stop: 09/28/25 18:50 Last Admin: 09/28/25 09:15 Dose: 100 mg Olanzapine (Olanzapine 5 Mg Tablet) 5 mg PO Q4H PRN PRN Reason: agitation/psychosis Trazodone HCl (Trazodone Hcl 50 Mg Tablet) 50 mg PO BEDTIME MRX1 PRN PRN Reason: Insomnia Allergies Allergies Allergy/AdvReac Type Severity Reaction Status Date / Time No Known Allergies Allergy Verified 09/23/25 17:44 Assessment & Plan Assessment & Plan (1) Schizoaffective disorder: Status: Acute Code(s): F25.9 - Schizoaffective disorder, unspecified Plan Patient is a 50-year-old female with history schizoaffective disorder who presented to ER via ambulance due to manic behaviors and delusional thoughts. Plan: CV 15 minute safety checks Obtain collateral Start: Depakote ER 1000mg PO bedtime Vraylar 1.5mg PO daily Referral to outpatient psychiatric provider Encourage groups Discharge planning 09/27: Active on unit. Present with rapid and pressured speech. Rambling. Flight of ideas. Fidgeting in chair. Patient stated, I'm angry at my friends for some of the things they did. They fired me from my job . Patient then began stating she does not trust her local police so she will have to talk to the [employer] about getting a no trespass order towards someone . When asked about her prescribed medications, patient stated, They're really good . pt denies any side effects at this time. Patient denies SI/HI/VH/AH. She does not appear to be responding to internal stimuli. Per nursing, patient slept 8 hours. Continue treatment plan. 09/28: Continue current regimen and plans. Reason for continued inpatient stay Substantial Risk for: med/psych decompensation Time Spent With Patient Time: Total time managing care of this patient today ____ minutes.
[2025-09-28 13:30] VITALS: BMI 35.2
[2025-09-28 19:40] VITALS: BP 143/72; PULSE 83; RESP 18; TEMP 36.4; O2SAT 93
--- NOTE | 2025-09-29 10:30 | PM.PSYDC ---
DS: Providers Provider Date of admission: 09/25/25 13:12 Date of discharge: 09/29/25 Primary care physician: Noemí Physician Attending physician on admission: Bhumi Gagnon Attending physician on discharge: Claudia Peck DS: Diagnosis Discharge Diagnosis (1) Schizoaffective disorder: Status: Acute DS: Medications Discharge Medications Home Medications: Previous Rx's ?Medication ?Instructions ?Recorded cariprazine 1.5 mg capsule 1.5 mg PO DAILY Mood 30 days #30 09/29/25 (Vraylar) caps divalproex 500 mg tablet,extended 1,000 mg (2 x 500 mg) PO DAILY 09/29/25 release 24 hr Mood 30 days #60 tabs Mental Status Exam Mental Status Exam Narrative: Patient presents well-groomed, casually dressed. Affect is euthymic with full range. Speech is clear and coherent. Thought process is somewhat disorganized but more linear and logical. Thought content is appropriate and relevant. Patient denies suicidal or homicidal ideation intent or plan. No overt psychotic symptoms elicited. Insight is good. Judgment is fair/guarded. Data Data Completed and Pending Completed studies during hospitalization [Text1]: 09/23/25 09/23/25 09/26/25 18:03 18:53 08:08 WBC 10.4 RBC 4.76 Hgb 13.7 Hct 40.1 MCV 84.2 MCH 28.8 MCHC 34.2 RDW 13.3 Plt Count 113 L MPV 11.7 Immature Gran % (Auto) 0.4 Neut % (Auto) 79.0 H Lymph % (Auto) 14.0 L [place] % (Auto) 4.3 Eos % (Auto) 1.7 Baso % (Auto) 0.6 Lymph # (Auto) 1.5 [place] # (Auto) 0.5 Eos # (Auto) 0.2 Baso # (Auto) 0.1 Abs Immat Gran (auto) 0.04 H Absolute Neuts (auto) 8.2 Absolute Nucleated RBC 0.000 Nucleated RBC % (auto) 0.0 Smear Tech's Comments VERIFIED Sodium 140 139 Potassium 3.8 3.8 Chloride 109 H 106 Carbon Dioxide 18 L 25 Anion Gap 17 12 BUN 15 16 Creatinine 0.77 0.79 Estim Creat Clear Calc 91.9 86.5 Estimated GFR > 60 > 60 Random Glucose 133 H 116 H Estimat Average Glucose 114 Hemoglobin A1c % 5.6 Calcium 9.4 9.5 Total Bilirubin 0.1 0.3 AST 25 23 ALT 20 25 Alkaline Phosphatase 85 86 Total Protein 7.7 7.6 Albumin 4.3 4.4 Triglycerides 224 H Cholesterol 207 H LDL Cholesterol, Calc 122 H HDL Cholesterol 41 Urine Color Yellow Urine Appearance Cloudy Urine pH 5.0 Ur Specific [place] 1.015 Urine Protein Negative Urine Glucose (UA) Negative Urine Ketones Negative Urine Blood Negative Urine Nitrite Negative Ur Leukocyte Esterase Moderate (2+) H Urine RBC 0-2 Urine WBC 11-20 H Ur Squamous Epith Cells 3-5 Urine Bacteria 2+ Hyaline Casts 0-2 Salicylates < 5.0 L Urine Opiates Screen Not Detected Ur Buprenorphine Scrn Not Detected Ur Oxycodone Screen Not Detected Urine Methadone Screen Not Detected Urine Fentanyl Screen Not Detected Acetaminophen < 3 Ur Barbiturates Screen Not Detected Ur Phencyclidine Scrn Not Detected Ur Amphetamines Screen Not Detected U Benzodiazepines Scrn Not Detected Urine Cocaine Screen Not Detected U Marijuana (THC) Screen Not Detected Ethyl Alcohol < 10 DS: Summary Hospital Course Hospital Course: Per admitting provider note: Patient is a 50-year-old female with history schizoaffective disorder who presented to ER via ambulance due to manic behaviors and delusional thoughts. Per crisis report, patient reportedly believes people are after her and are attempting to harvest her heart . 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 Patient believes people are looking for her and are going to harvest her organs for her ex- . Patient has been contacting police, homeland security and FBI. Speech is tangential. She reports being a part of [employer] and needs to remain private. Patient stated, I only sleep around 12:28am. I wake up at this time and have to be aware. I'm not allowed out of my house after 10pm . Patient presents delusional, paranoid and thought blocking. She reports sleep and appetite are okay. She presents as internally preoccupied. Patient denies SI/HI/VH/AH. History of 2 inpatient psychiatric hospitalizations. Patient reports she is no longer taking psychiatric medications. She denies history of SA/SIB. denies any substance use. Utox negative. Plan: CV 15 minute safety checks Obtain collateral Start: Depakote ER 1000mg PO bedtime Vraylar 1.5mg PO daily Referral to outpatient psychiatric provider Encourage groups Discharge planning 09/27: Active on unit. Present with rapid and pressured speech. Rambling. Flight of ideas. Fidgeting in chair. Patient stated, I'm angry at my friends for some of the things they did. They fired me from my job . Patient then began stating she does not trust her local police so she will have to talk to the [employer] guys about getting a no trespass order towards someone . When asked about her prescribed medications, patient stated, They're really good . pt denies any side effects at this time. Patient denies SI/HI/VH/AH. She does not appear to be responding to internal stimuli. Per nursing, patient slept 8 hours. Continue treatment plan. 09/28: She continues to be somewhat disorganized, tangential. Affect is blunted. 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 No complaints or side effects. No SI. Sleeping 8 hours. No changes were made. Continue current regimen and plans. 09/29/26: patient was seen prior to discharge, denies SI/SIB/HI/AVH, somewhat disorganized but with some improvement in mood, pleasant and cooperative. Compliant with meds, denies side effects. Reviewed with patient regarding Depakote which is too early to check blood level prior to discharge. Patient is aware to FLU with OP provider to make sure level is checked and titrate up for mood if it is subtherapeutic. Meds sent home to preferred pharmacy. Patient does not wish to retract three-day notice for further medication management regarding psychosis and mood. No safety concerns of patient returning home or to community. Patient to continue taking meds as prescribed. Time spent discussing smoking cessation with patient: 3 to 10 minutes Status at Discharge Cognitive/behavioral status at discharge: CONDITION ON DISCHARGE: CURRENT STATUS IT RELATES TO ADMISSION CRITERIA: Stable, improved. Improvements in depression, anxiety, and suicidal ideation. Improvements in sleep, energy, and appetite. and no hallucination or paranoia/delusional thought but could be somewhat disorganized thoughts. Functional status at discharge: independent ambulation Overall status at discharge: patient is progressing back to baseline Time Spent with Patient Time attestation: Total time managing care of this patient today ____ minutes. Time spent: Greater than 30 minutes Discharge Plan Discharge Anticipated Discharge Date/Time: 09/29/25 11:00 Patient Disposition: Home, Self-Care Discharge Diagnosis: Schizoaffective Disorder Referrals: [facility]- Psychiatry and Therapy Services [Other] - 1 Week Referral Note: walk in hours are Thursday-Thursday 8am-8pm as well as weekend hours 9am-5pm [facility] [Provider Group] - 1 Week Referral Note: 09-26-25 [facility] was added to patients chart. Please call [phone] to schedule a follow up appt within 7-10 days of discharge. No release or PCP on file. Discharge Medications: New divalproex 500 mg Tablet Extended Release 24 Hr 1,000 mg PO DAILY 30 Days Qty: 60 0RF Vraylar 1.5 mg Capsule 1.5 mg PO DAILY 30 Days Qty: 30 0RF Discharge Orders: Discharge Order (Routine); Ordered 09/29/25 Ordered By: Claudia Peck Diet: Regular diet Activity on Discharge: No Restrictions Stand Alone Forms: Patient Portal Discharge page, Community Support Print Language: Nepali Care Plan Goals: Maintain mood and safe behaviors Take medications as prescribed Continue to pursue sobriety Practice coping skills Continue with outpatient providers and reach out to them as needed. you are given information regarding walk-in clinic Health Concerns: Mood stability and behaviors. Sobriety Plan of Treatment: Follow up with your PCP, psychiatric provider and other outpatient providers regarding above concerns Take medications as prescribed and make sure to address with provider at Walk in clinic regarding the need of Depakote level need to be done in a day or two upon discharge as it is too early to check the level prior to dscharge as you had signed 3-day notice with intent to leave the hospital which you do not want to retract it for further treatment and medication management. Assessment: Assessment: Risk assessment at time of discharge: Patient was interviewed prior to discharge and found to be fully oriented and without any SI or HI. Patient has improved insight and judgment and wants to continue treatment. Patient is not in imminent risk of harm to self or others and has a safety plan that includes presenting to the closest ER or calling 911 if feeling unsafe. Patient has been observed closely by nursing and unit staff throughout admission; patient has not engaged in any behaviors that suggest dangerousness to self or others and has demonstrated appropriate behaviors and impulse control Discharge Date/Time: 09/29/25 11:19
== END 2025-09-29 11:19 | disposition home or self-care (01) | DRG 885 ==
LOC: HO.ED 09-25 13:26 → HO.PADLT16 09-25 13:32
PROVIDERS: Nurse Practitioner; Admitting Provider Registered Nurse; Emergency Provider Emergency Medicine Emergency Medical Services; Visit Provider Registered Nurse
DX: F25.9 Schizoaffective disorder, unspecified (principal); R73.03 Prediabetes; E78.5 Hyperlipidemia, unspecified; Z79.899 Other long term (current) drug therapy
CPT/HCPCS: 36415; 80053; 80061; 80143; 80179; 80307; 81001; 83036; 85025; 93005; 99285; S9485

== ENCOUNTER → 2025-09-25 08:27 | Outpatient (BNV) | payer OTHER, SELFPAY | PROVIDERS: Emergency Provider Emergency Medicine Emergency Medical Services; Visit Provider Internal Medicine Cardiovascular Disease | DX: Z13.6 Encounter for screening for cardiovascular disorders (principal) | CPT/HCPCS: 93010 ==

== ENCOUNTER → 2025-09-25 13:12 | Outpatient (BNV) | payer OTHER, SELFPAY | PROVIDERS: Admitting Provider Registered Nurse; Emergency Provider Emergency Medicine Emergency Medical Services; Visit Provider Psychiatry & Neurology Psychiatry | DX: F25.9 Schizoaffective disorder, unspecified (principal) | CPT/HCPCS: 90792; 99232 ==

== ENCOUNTER → 2025-09-25 13:12 | Outpatient (BNV) | payer OTHER, SELFPAY | PROVIDERS: Admitting Provider Registered Nurse; Emergency Provider Emergency Medicine Emergency Medical Services; Visit Provider Nurse Practitioner Family | DX: F22 Delusional disorders (principal) | CPT/HCPCS: 99221 ==